=== PATIENT | female | born 1940 | race African-American/Black ===

== ENCOUNTER 2022-01-24 18:48 | Emergency (ER) | payer MEDICARE, OTHER ==
[~2022-01-24] VITALS: Ht 157.5 cm; Wt 69.0 kg
[2022-01-24] MEDS ORDERED: PIPERACILLIN/TAZ 3.375G PREMIX 50 ML IV ONE (19:15)
[2022-01-24] MEDS ORDERED: VANCOMYCIN 1G PREMIX 200 ML IV ONE (19:15)
[2022-01-24] MEDS ORDERED: SODIUM CHLORIDE 0.9% 1000ML BAG (SEPSIS BOLUS) IV ONE (19:15)
[2022-01-24 19:52] LABS: BASOPHILS % 0.5 % (0.0-2.0); EOSINOPHILS % 1.3 % (0.0-5.0); HEMATOCRIT. 35.4 % (36.0-48.0); HEMOGLOBIN. 11.4 g/dL (12.0-16.0); LYMPHOCYTES % 23.4 % (20.0-50.0); MEAN CORPUSCULAR HEMOGLOBIN 29.3 pg (28.0-32.0); MEAN CORPUSCULAR VOLUME 91.3 fL (81.0-99.0); MEAN PLATELET VOLUME 7.6 fl (7.4-10.4); MONOCYTES % 5.7 % (2.0-8.0); NEUTROPHILS % 69.1 % (40.0-76.0); PLATELET 274 x1000/uL (130-400); RED BLOOD CELL COUNT 3.87 mill/uL (4.2-5.4); RED CELL DISTRIBUTION WIDTH 16.1 % (11.6-14.6)
[2022-01-24 20:01] LABS: D-DIMER 1.03 mg/L FEU (<0.50); INR 1.1; PROTHROMBIN TIME 12.2 sec (9.6-11.0)
[2022-01-24 20:04] LABS: CHLORIDE 111 mEq/L (98-107)
[2022-01-24] MEDS ORDERED: ENOXAPARIN 80MG/0.8ML SYR SUBCUT ONE (21:45)
[2022-01-24] MEDS ORDERED: VANCOMYCIN 1GM PMX (XELLIA) 200 ML IV NR (22:30)
[2022-01-24] MEDS ORDERED: PIPERACILLIN/TAZOBACTAM 3.375G in DEXT 5% WATER 50ML IV NR (22:30)
[2022-01-24] MEDS ORDERED: IOHEXOL-350 100 ML BOTTLE ONE (22:43)
[2022-01-24 23:09] LABS: CLARITY URINE CLEAR (CLEAR); COLOR URINE YELLOW (YELLOW); KETONES URINE NEGATIVE (NEGATIVE); LEUKOCYTE ESTERASE URINE 1+ (NEGATIVE); NITRITE URINE POSITIVE (NEGATIVE); OCCULT BLOOD URINE NEGATIVE (NEGATIVE); PROTEIN URINE NEGATIVE (NEGATIVE); SPECIFIC GRAVITY URINE 1.033 (1.005-1.030)
[2022-01-25 02:32] VITALS: BP 138/88
== END 2022-01-25 04:54 | disposition short-term general hospital (02) ==
LOC: ER 18:48
DX: R55 Syncope and collapse (principal); R41.82 Altered mental status, unspecified; R00.0 Tachycardia, unspecified; A41.9 Sepsis, unspecified organism; N39.0 Urinary tract infection, site not specified; Z20.822 Contact with and (suspected) exposure to COVID-19
CPT/HCPCS: 36415; 70450; 71045; 71275; 80053; 81003; 83605; 83880; 84145; 84484; 85025; 85379; 85610; 85730; 87040; 87086; 87186; 87426; 93005; 93970; 96361; 96372; 96374; 96375; 99291; J1650; J2543; J3370; J7030; J7060; Q9967